=== PATIENT | male | born 1950 | race Hispanic/Latino ===

== ENCOUNTER → 2025-02-03 | Outpatient (CLI) | payer OTHER ==
[~2025-02-03] MED LIST: FAMO20TA8 PO; INSLAN SQ
== END | disposition home or self-care (01) ==
LOC: WHH 09:56
PROVIDERS: ATTEND Podiatrist Foot & Ankle Surgery
DX: T87.89 Other complications of amputation stump (principal); E11.9 Type 2 diabetes mellitus without complications; Y83.5 Amputation of limb(s) as the cause of abnormal reaction of the patient, or of later complication, without mention of misadventure at the time of the procedure
CPT/HCPCS: G0463; A6250